=== PATIENT | female | born 1930 | race Caucasian/White ===

== ENCOUNTER 2016-10-08 17:50 | Emergency (ER) | payer MEDICARE, MEDICAID ==
--- NOTE | ~2016-10-08 | ER ---
PATIENT'S NAME: MARTHA [facility] AGE: 86 Y [address] ROOM: [place] [address] LOCATION: ED ADMIT DATE: 10/08/2016 ER/Outpatient Report DISCHARGE DATE: 10/08/2016 FAMILY PHYSICIAN: Damon Perez MD ATTENDING PHYSICIAN: Renato Borrego Time of Arrival: 1750 hours. Time Seen: 1830 hours. IDENTIFICATION: An 86-year-old female. CHIEF COMPLAINT: Uterine prolapse. HISTORY OF PRESENT ILLNESS: The patient is an 86-year-old female who was seen in March with uterine prolapse, did follow up in the clinic with Dr. Hernández and a pessary did not work, she said that did not stay in, and at that time she did not want surgery. Since then, it has increased in size and now for the last few days she has been increasingly incontinent of urine, and she has noted a little bit of bleeding. ALLERGIES: PENICILLIN. CURRENT MEDICATIONS: 1. Levothyroxine 75 mcg daily. 2. Timolol 0.5% eye solution 1 drop in each eye every morning. 3. Symbicort 160/4.5 two puffs twice daily. 4. Omeprazole 20 mg daily. 5. Plavix 75 mg daily. 6. Flonase 1 spray to each nostril twice daily. 7. Enteric-Coated aspirin 81 mg daily. 8. Tylenol 650 mg t.i.d. 9. Simvastatin 20 mg at h.s. 10. Zyrtec 10 mg daily. 11. Vitamin D 1000 units daily. 12. Artificial tears. 13. Tessalon Perles 100 mg b.i.d. P.r.n. medications to include: 1. Maalox. 2. Milk of magnesia. 3. Imodium. 4. Lotrimin. PATIENT'S NAME: MARTHA [facility] AGE: 86 Y [address] ROOM: [place] [address] LOCATION: [facility] ADMIT DATE: 10/08/2016 ER/Outpatient Report DISCHARGE DATE: 10/08/2016 FAMILY PHYSICIAN: Damon Perez MD ATTENDING PHYSICIAN: Renato Borrego 5. Flonase. MEDICAL PROBLEMS: Hypertension, venous insufficiency, gastroesophageal reflux, hypothyroidism, glaucoma, basal cell carcinoma of her face, left breast cancer, TIA, hypothyroidism, and COPD. PRIOR SURGERIES: Appendectomy, venous ligation x2, left breast lumpectomy, and excision of basal cell carcinoma. SOCIAL HISTORY: The patient lives at [facility] here in [place]. Tobacco use, denies. Alcohol use, denies. REVIEW OF SYSTEMS: All systems reviewed and negative other than what is noted in the HPI. PHYSICAL EXAMINATION: VITAL SIGNS: Weight 72.5 kg. Blood pressure 140/68, pulse 120, respirations 18, temperature 99.2, and saturations 95% on room air. Recheck of her heart rate did come down to 102. GENERAL: An 86-year-old female, in no acute distress. HEENT: Unremarkable. LUNGS: Clear to auscultation. HEART: Regular rate and rhythm. ABDOMEN: Soft, nondistended. PELVIC: Prolapsed uterus. There is an area that is in the anterior vaginal wall has a little bit of erosion. She has a couple of areas on the sidewalls with a small amount of bleeding. EMERGENCY ROOM COURSE: The patient was prepped, and a cath UA was obtained, which showed a full field of white cells and cloudy urine. I did reduce the prolapse manually, but it did come right back out. IMPRESSION: 1. Urinary tract infection. 2. Prolapsed uterus. PLAN: Levaquin 250 daily for 5 days. Repeat UA in 7 days. Follow up at [facility] regarding the prolapse. Follow up with Dr. Perez in 1 week regarding her UTI. The patient and her granddaughter understand and agree, and all questions have been answered. I also spoke with Dr. Mora, PATIENT'S NAME: JORJE THOMAS [facility] AGE: 86 Y [address] ROOM: [place] [address] LOCATION: [facility] ADMIT DATE: 10/08/2016 ER/Outpatient Report DISCHARGE DATE: 10/08/2016 FAMILY PHYSICIAN: Damon Perez MD ATTENDING PHYSICIAN: Renato Borrego [employer] plant protection guard, who was in agreement with this plan. MD RUTHIE KEYES/elisabeth /[id number] d: 10/09/16 0026 t: 10/09/16 0311, OUTPATIENT REPORT
[2016-10-08 19:05] LABS: BILIRUBIN URINE NEGATIVE (NEGATIVE); BLOOD URINE 250 /UL (NEGATIVE); COLOR URINE YELLOW (YELLOW); GLUCOSE URINE NEGATIVE (NEGATIVE); KETONE URINE NEGATIVE (NEGATIVE); LEUKOCYTES URINE 500 /UL (NEGATIVE); NITRITE URINE POSITIVE (NEGATIVE); PH URINE 6.5 (4.0-8.0); PROTEIN URINE 500 mg/dL (NEGATIVE); TURBIDITY URINE 4+ (CLEAR); UROBILINOGEN URINE NORMAL (NORMAL)
[2016-10-08 19:15] LABS: RBC URINE 20-50 #/HPF (NEGATIVE); WBC URINE FULL FIELD #/HPF (NEGATIVE)
[2016-10-08 19:16] LABS: BACTERIA URINE MANY (NEGATIVE); WBC CLUMPS URINE FEW (NEGATIVE)
== END 2016-10-08 19:30 | disposition disaster alternative care site (69) ==
LOC: GMED 17:50
PROVIDERS: Emergency Medicine
DX: N39.0 Urinary tract infection, site not specified (principal); N81.4 Uterovaginal prolapse, unspecified; I10 Essential (primary) hypertension; I87.2 Venous insufficiency (chronic) (peripheral); E03.9 Hypothyroidism, unspecified; K21.9 Gastro-esophageal reflux disease without esophagitis; J44.9 Chronic obstructive pulmonary disease, unspecified; Z85.828 Personal history of other malignant neoplasm of skin; Z85.3 Personal history of malignant neoplasm of breast; Z90.49 Acquired absence of other specified parts of digestive tract; Z98.890 Other specified postprocedural states; Z88.0 Allergy status to penicillin; Z79.890 Hormone replacement therapy; Z86.73 Personal history of transient ischemic attack (TIA), and cerebral infarction without residual deficits; Z79.02 Long term (current) use of antithrombotics/antiplatelets; Z79.82 Long term (current) use of aspirin; Z79.899 Other long term (current) drug therapy

== ENCOUNTER 2016-10-20 09:19 | Emergency (ER) | payer MEDICARE, MEDICAID ==
--- NOTE | ~2016-10-20 | ER ---
PATIENT'S NAME: JORJE THOMAS [facility] AGE: 86 Y [address] ROOM: [place] [address] LOCATION: [facility] ADMIT DATE: 10/20/2016 ER/Outpatient Report DISCHARGE DATE: 10/20/2016 FAMILY PHYSICIAN: Damon Perez MD ATTENDING PHYSICIAN: Deep Hurd Time of Arrival: Time of Evaluation: Admission date and time documented in the medical record. I saw the patient at 0930 hours. CHIEF COMPLAINT: Incontinence of urine, lower abdominal pain, and perineal pain. HISTORY OF PRESENT ILLNESS: This patient is an 86-year-old female, who is known to have uterine prolapse along with cystocele and rectocele. She saw Dr. Mora, kennel hand a few days ago. From my understanding, he did recommend operative correction. She has been thinking about this, and since she has been having more and more pain and more and more problems with incontinence. She stated here in the emergency department that she is going to request Surgery intervention. Her uterus is completely prolapsed. She is having more incontinence and pain. No real bleeding. No fever, chills, or sweats. No coughs, colds, or flus. No fall or trauma. No chest pain, shortness of breath. Some lower abdominal pain. No nausea, vomiting, or diarrhea. No joint or muscle swelling, redness, or pain. No skin eruptions or rash. HOME MEDICATIONS: See attached medication list. ALLERGIES: PENICILLIN. SOCIAL HISTORY: Nonsmoker and nondrinker. SIGNIFICANT PAST MEDICAL HISTORY: 1. Hypertension. 2. Recurrent urinary tract infections. 3. Gastroesophageal reflux. 4. Breast cancer. 5. Glaucoma. 6. Venous insufficiency. 7. Hypothyroidism. 8. Prolapsed uterus. 9. Cystocele. PAT[facility]'S [facility]: [facility] 86 Y [address] ROOM: [place] [address] LOCATION: [facility] ADMIT DATE: 10/20/2016 ER/Outpatient Report DISCHARGE DATE: 10/20/2016 FAMILY PHYSICIAN: Damon Perez MD ATTENDING PHYSICIAN: Deep Hurd 10. Rectocele. 11. Over atrophy. PAST SURGICAL HISTORY: Operations: 1. Left mastectomy. 2. Appendectomy. REVIEW OF SYSTEMS: All systems reviewed by me are negative with the exception of those discussed in the History of Present Illness. PHYSICAL EXAMINATION: VITAL SIGNS: Temperature 97.9, tympanic; pulse 100; respirations 20; blood pressure 146/67; and O2 saturation on room air is 96%. HEENT: Negative. LUNGS: Clear. HEART: Regular. ABDOMEN: Soft, nontender. Active bowel tones. Nondistended. GENITOURINARY: The patient does have a prolapsed uterus. Not bleeding. We did get a cath urine sample. EXTREMITIES: Intact. NEUROLOGIC: Neurovascularly intact. SKIN: Clear. LABORATORY DATA: Urine shows too numerous packed field whites, packed field reds, rare epithelial cells, few bacteria, and positive nitrites on dipstick. Culture pending. IMPRESSION: 1. Urine tract infection. 2. Uterine prolapse. PLAN: The patient was dismissed back to [facility], observation. Activity as tolerated. Continue present home medications and care. Tylenol No. 3, 1 to 2 orally every 4 to 6 hours as needed for pain, #20; Levaquin 500 mg 1 orally daily x7 days. Awaiting urine culture. The patient is to follow up with Dr. Mora next week. Discussion ensued with the patient and her family regarding my findings and recommendations, they understand. PATIENT'S NAME: JORJE THOMAS [facility] AGE: 86 Y [address] ROOM: [place] [address] LOCATION: [facility] ADMIT DATE: 10/20/2016 ER/Outpatient Report DISCHARGE DATE: 10/20/2016 FAMILY PHYSICIAN: Damon Perez MD ATTENDING PHYSICIAN: Deep Hurd MD SDS/modl /[id number] d: 10/20/16 1756 t: 10/21/16 0613, OUTPATIENT REPORT
[2016-10-20 10:47] LABS: BILIRUBIN URINE NEGATIVE (NEGATIVE); BLOOD URINE 250 /UL (NEGATIVE); COLOR URINE STRAW (YELLOW); GLUCOSE URINE NEGATIVE (NEGATIVE); KETONE URINE NEGATIVE (NEGATIVE); LEUKOCYTES URINE 500 /UL (NEGATIVE); NITRITE URINE POSITIVE (NEGATIVE); PROTEIN URINE 100 mg/dL (NEGATIVE); SPEC GRAVITY URINE 1.005 (1.003-1.035); TURBIDITY URINE 2+ (CLEAR); UROBILINOGEN URINE NORMAL (NORMAL)
[2016-10-20 10:58] LABS: BACTERIA URINE FEW (NEGATIVE); EPITHELIAL URINE RARE #/HPF (NEGATIVE); RBC URINE PACKED FIELD #/HPF (NEGATIVE); WBC URINE PACKED FIELD #/HPF (NEGATIVE)
== END 2016-10-20 11:29 | disposition disaster alternative care site (69) ==
LOC: GMED 09:19
PROVIDERS: Emergency Medicine
PROC: 0T9B70Z Drainage of Bladder with Drainage Device, Via Natural or Artificial Opening (ICD-10-PCS; principal; 2016-10-20)
DX: N39.0 Urinary tract infection, site not specified (principal); N81.4 Uterovaginal prolapse, unspecified; I10 Essential (primary) hypertension; K21.9 Gastro-esophageal reflux disease without esophagitis; E03.9 Hypothyroidism, unspecified; Z90.49 Acquired absence of other specified parts of digestive tract; Z90.12 Acquired absence of left breast and nipple; Z88.0 Allergy status to penicillin

== ENCOUNTER → 2016-10-20 | Outpatient (CLI) | payer MEDICARE, MEDICAID ==
[~2016-10-20] MED LIST: ARTIFICIAL TEAR15 ML OPHTH; ASPIRIN LO-DOSE81 MG PO; FLEET ENEMA133 ML R; FLONASE 50 MCG/16 GM NOSE; IMODIUM2 MG PO; LEVOTHROID(SYN75 MCG PO; LOTRIMIN30 GM TOP; MAALOX LIQ UNIT30 ML PO; MACROBID100 MG PO; MILK OF MA400 MG/5 M PO; NORCO 5-325 TA1 EACH PO; PLAVIX75 MG PO; PRILOSEC20 MG PO; SYMBICORT 16010.2 GM INH; TESSALON PERLE100 MG PO; TIMOPTIC 0.5%15 ML OPHTH; TYLENOL ARTHRI650 MG PO; TYLENOL WITH C1 EACH PO; VITAMIN D1000 UNIT PO; ZOCOR20 MG PO; ZYRTEC10 MG PO
== END | disposition disaster alternative care site (69) ==
LOC: GAMB 09:01
DX: R10.84 Generalized abdominal pain (principal); R10.2 Pelvic and perineal pain; Z88.0 Allergy status to penicillin
CPT/HCPCS: A0425; A0429

== ENCOUNTER 2016-10-30 16:00 | Inpatient (IN) | payer MEDICARE, MEDICAID ==
[~2016-10-30] VITALS: Ht 167.6 cm; Wt 73.6 kg
--- NOTE | ~2016-10-30 | OR ---
[facility] 86 Y [address] ROOM: [place] [address] [place] [facility] [place] DATE: 11/06/2016 OR/Procedure Report DISCHARGE DATE: FAMILY PHYSICIAN: Damon Perez MD ATTENDING PHYSICIAN: Laron Mora SURGEON: Rigoberto Poole MD MULCHER OPERATOR: DATE OF PROCEDURE: 11/06/2016 PREOPERATIVE DIAGNOSES: 1. Uterovaginal prolapse with total procidentia. 2. Cystocele. 3. Rectocele. 4. Enterocele. 5. Stress urinary incontinence. POSTOPERATIVE DIAGNOSES: 1. Uterovaginal prolapse with total procidentia. 2. Cystocele. 3. Rectocele. 4. Enterocele. 5. Stress urinary incontinence. 6. 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 PROCEDURE: Total vaginal hysterectomy with enterocele repair, resection of broad ligament leiomyomas, anterior colporrhaphy, posterior colporrhaphy, vaginal vault suspension, mid urethral sling, and biopsy of vaginal wall. CO-SURGEON: Huseyin Rosales MD. ANESTHESIA: General with intubation. ESTIMATED BLOOD LOSS: Approximately 1500 mL. DESCRIPTION OF PROCEDURE: The patient was taken to the operating room, under adequate general anesthesia, positioned, prepped, and draped in the usual fashion. She had the total procidentia noted. There was a small dimple opening at what should have been a cervical os, however, the cervix was unable to be identified from the flush vaginal mucosa. We grasped the edges of the small opening and made a circumferential incision using a sharp knife. The vaginal mucosa was pushed back anteriorly and posteriorly. The cervix was noted to be quite elongated. We used the LigaSure device to clamp, seal, and divide pedicles on each side of the uterus at the 3 o'clock and 9 o'clock position and continued our dissection anteriorly and posteriorly using sharp PAT[facility]'S [facility]: [facility] AGE: 86 Y [address] ROOM: [place] [address] [place] [facility] [place]: 11/06/2016 OR/Procedure Report DISCHARGE DATE: FAMILY PHYSICIAN: Damon Perez MD ATTENDING PHYSICIAN: Laron Mora and blunt dissection. The cervix was approximately 7-8 cm long. We finally were able to palpate the uterine fundus after continuing our dissection with the LigaSure device instrument, however, the peritoneum was never entered; and with continued dissection and using the LigaSure device, the uterus was freed up and handed off the field. We then were able to identify the peritoneum and opened this, placed the blade of the long weighted speculum into the cul-de- sac, and used the retractor anteriorly, what we then noted was that there were a couple of uterine leiomyomas involving the broad ligament on the patient's right side. By this time, she had had a fairly unusual amount of blood loss. We were able to resect those fibroids and tie off the utero-ovarian ligament on that side. Again, we were concerned about blood loss prior to starting the hysterectomy. She had a 5-cm ulceration involving the vaginal mucosa, that we had resected, and this had continued to ooze during the hysterectomy. The tubes and ovaries were not readily accessible and the decision was made because of the blood loss at that point and additional procedures that were necessary, that we would not invest more time looking for the tubes and ovaries and attempting to remove them. We thereupon and placed a pursestring suture of 0 Vicryl to close off the enterocele as high as possible. We placed additional sutures of 0 Vicryl in a pursestring fashion to close off the enterocele. We then dissected the vaginal mucosa off the anterior wall in the midline from the apex of which should have been the top of the vagina out to the urethral meatus. Mucosa was freed up from the underlying tissues, and we dissected into the periurethral area on each side. Dr. Rosales then was able to perform the mid urethral sling procedure. Please see his dictated note. We then performed the cystocele repair using interrupted 2-0 Vicryl sutures in a [id number] fashion. We then trimmed off excess vaginal wall mucosa and approximated the edges in the midline with running locked 0 Vicryl up to the vaginal apex. The cuff was then closed with the 0 Vicryl as well. We then turned our attention posteriorly and resected a triangular-shaped piece of tissue at the posterior fourchette of the vagina. We dissected through the mucosa in the midline from the introitus up to where the ulcerated lesion had been removed. We then freed up the edges of the mucosa from the underlying tissues and dissected back to the region of the sacrospinous ligament on each side. We passed a ligature of 0 Goodman-Rock through the sacrospinous ligament on each side and this was attached to the lateral apex of the vagina effectively performing a sacrospinous ligament fixation of the vaginal apex on each side. We then removed the excess vaginal mucosa and performed the rectocele repair using a running nonlocked 0 Vicryl. A 2nd layer of running nonlocked 0 Vicryl was used to imbricate the first layer. We then approximated the mucosa in a running locked fashion from the apex of vagina out to the introitus. This was continued in a running nonlocked fashion to approximate the perineal body and then in a subcuticular fashion approximating the skin edges over the perineal body. Upon completion, all counts were correct. She did have a growth upon the right lateral aspect of the vagina wall and this appeared to be about a 1.5 cm to 2 cm condylomatous lesion, this was removed using cautery and the PATIENT'S NAME: JORJE THOMAS [facility] AGE: 86 Y [address] ROOM: [place] [address] [place] [facility] [place]: 11/06/2016 OR/Procedure Report DISCHARGE DATE: FAMILY PHYSICIAN: Damon Perez MD ATTENDING PHYSICIAN: Laron Mora mucosa approximated with an interrupted suture of 2-0 Vicryl. Hemostasis then was good. We placed a pack in the vagina and a Clemens in the bladder, and the patient was taken to the recovery area in good condition. MD ZACH SHAY/elisabeth /[id number] d: 11/06/162138 t: 11/28/16 1626, OPERATIVE SUMMARY
--- NOTE | ~2016-10-30 | OR ---
PATIENT'S NAME: JORJE THOMAS [facility] AGE: 86 Y [address] ROOM: [place] [address] LOCATION: [facility] [place] ADMIT DATE: 11/06/2016 OR/Procedure Report DISCHARGE DATE: FAMILY PHYSICIAN: Damon Perez MD ATTENDING PHYSICIAN: Laron Mora SURGEON: Huseyin Rosales MD PACKERHEAD MACHINE OPERATOR: DATE OF PROCEDURE: 11/06/2016 PREOPERATIVE DIAGNOSES: 1. Stress urinary incontinence. 2. Uterine prolapse. 3. Cystocele. POSTOPERATIVE DIAGNOSES: 1. Stress urinary incontinence. 2. Uterine prolapse. 3. Cystocele. PROCEDURE PERFORMED: Mid-urethral suspension. ANESTHESIA: General. COMPLICATIONS: None. INDICATION FOR PROCEDURE: The patient is an 86-year-old female with severe cystocele and uterine prolapse along with stress urinary incontinence. The patient is scheduled to undergo simultaneous repair. DESCRIPTION OF PROCEDURE: After Dr. Poole completed his part of the procedure, he opened up the anterior vaginal wall and developed a space into the endopelvic fascia. I made a skin incision over the pubic bone bilaterally. Next, the TVT needle was passed through the abdominal incision, through the endopelvic fascia, and out the anterior vaginal wall bilaterally. Cystoscopy was performed, and this revealed that the needles had not penetrated the bladder wall. The Clemens catheter was replaced, and a tape was attached to the ends of each needle and pulled through. Heavy curved scissors were used as a spacing device. The sheath was cut and pulled through, locking the tape in position. The excess was excised at the abdominal wall. The patient tolerated this part of the procedure well. At this point, Dr. Poole continued on with his part of the operation. [facility] 86 Y [address] ROOM: [place] [address] LOCATION: [facility] [place] ADMIT DATE: 11/06/2016 OR/Procedure Report DISCHARGE DATE: FAMILY PHYSICIAN: Damon Perez MD ATTENDING PHYSICIAN: Laron Mora MD KELLY/elisabeth /[id number] CC: MD Rigoberto Griffith MD d: 11/06/16 1301 t: 11/07/16 0903, OPERATIVE SUMMARY
--- NOTE | ~2016-10-30 | DS ---
PATIENT'S NAME: JORJE THOMAS [facility] AGE: 86 Y [address] ROOM: [address] [address] [place] [facility] [place] DATE: 11/06/2016 Discharge Summary DISCHARGE DATE: 11/09/2016 FAMILY PHYSICIAN: Damon Perez MD ATTENDING PHYSICIAN: Rigoberto Poole CHIEF COMPLAINT AND HISTORY OF PRESENT ILLNESS: This 86-year-old female had problems with total procidentia. The uterus was totally prolapsed out through the vagina and she was unable to retain it. She was admitted for surgical therapy and on the day of admission, she was taken to the operating room where she had a vaginal hysterectomy followed by enterocele repair, anterior and posterior colporrhaphy, vaginal vault suspension procedure, resection of broad ligament leiomyomas, biopsy of vaginal wall by myself, and then a mid urethral sling procedure by Dr. Rosales. Please see the dictated operative reports. On her first postop day, she remained afebrile. Vital signs stable. She was able to ambulate with assistance. She was noted to be anemic, but vital signs were stable and she appeared to tolerate this well. She had the vaginal packing removed along with her catheter, but was unable to void. She was kept overnight and on her 2nd postoperative day, hemoglobin was 8.2. She increased her activity, was able to tolerate oral intake well, but still was somewhat unsteady and unable to void on her own. She was ultimately transfused 2 units of packed red blood cells, this increased her ability to ambulate and on November 09, was deemed well enough for discharge. At that time, she remained afebrile. Vital signs stable. Minimal vaginal drainage. She was still unable to void, but was instructed on the use of a leg bag and went home with her catheter. Instructions were given and understood with regard to activity. She will follow up for postop care with me in 2 weeks in the office and will see Dr. Rosales in 7-10 days for removal of the catheter and followup on her bladder function. MD ZACH SHAY/elisabeth /[id number] d: t: 11/29/16 0236, DISCHARGE SUMMARY
[2016-10-31] MEDS ORDERED: LEVOTHROID(SYN75 MCG PO (11:19)
[2016-10-31] MEDS ORDERED: SYMBICORT 16010.2 GM INH (11:20)
[2016-10-31] MEDS ORDERED: TIMOPTIC 0.5%15 ML OPHTH (11:20)
[2016-10-31] MEDS ORDERED: PRILOSEC20 MG PO (11:20)
[2016-10-31] MEDS ORDERED: PLAVIX75 MG PO (11:21)
[2016-10-31] MEDS ORDERED: ASPIRIN LO-DOSE81 MG PO (11:21)
[2016-10-31] MEDS ORDERED: FLONASE 50 MCG/16 GM NOSE ×2 (11:21→11:28)
[2016-10-31] MEDS ORDERED: TYLENOL ARTHRI650 MG PO ×2 (11:22→11:25)
[2016-10-31] MEDS ORDERED: VITAMIN D1000 UNIT PO (11:22)
[2016-10-31] MEDS ORDERED: ZYRTEC10 MG PO (11:22)
[2016-10-31] MEDS ORDERED: ZOCOR20 MG PO (11:22)
[2016-10-31] MEDS ORDERED: ARTIFICIAL TEAR15 ML OPHTH (11:23)
[2016-10-31] MEDS ORDERED: MAALOX LIQ UNIT30 ML PO (11:24)
[2016-10-31] MEDS ORDERED: TESSALON PERLE100 MG PO (11:24)
[2016-10-31] MEDS ORDERED: MILK OF MA400 MG/5 M PO (11:25)
[2016-10-31] MEDS ORDERED: IMODIUM2 MG PO (11:26)
[2016-10-31] MEDS ORDERED: TYLENOL WITH C1 EACH PO (11:27)
[2016-10-31] MEDS ORDERED: LOTRIMIN30 GM TOP (11:27)
[2016-10-31] MEDS ORDERED: FLEET ENEMA133 ML R (11:29)
[2016-11-06] MEDS ORDERED: MACROBID100 MG PO (07:56)
[2016-11-06 13:35] LABS: HEMATOCRIT 29.8 % (30.0-46.0); HEMOGLOBIN 9.6 g/dL (10.0-15.0)
--- NOTE | 2016-11-06 17:18 | NUR ---
Patient arrived from surgery at 1515 to room 3202. She has 2 incisions in the lower abdomen, steri-striped. Vag packing and barajas in place, to be removed tomorrow at 0700. She has received one percocet, Dr. Poole wants to have another given, will offer before shift change. VSS, on 0.5L O2, she desats when she sleeps. Activity is up to chair and diet as tolerated.
[2016-11-07 04:19] LABS: BASOPHIL % 0.1 %; EOSINOPHIL % 0.2 %; HEMATOCRIT 25.9 % (30.0-46.0); HEMOGLOBIN 8.2 g/dL (10.0-15.0); IMMATURE GRANULOCYTE % 0.4 %; LYMPHOCYTE # 1.5 K/uL (0.8-4.0); MCH 30.7 pg (27.0-34.0); MCHC 31.7 gm/dL (32.0-36.5); MONOCYTE # 1.3 K/uL (0.0-1.0); MONOCYTE % 13.3 %; MPV 9.3 fl (9.4-12.4); NEUTROPHIL # (ANC) 6.9 K/uL (1.8-7.8); NRBC % 0 /100WBC (0-0.00); PLATELET COUNT 217 K/uL (150-450); RDW-CV 13.2 % (11.9-14.6); WBC 9.7 K/uL (4.0-11.0)
[2016-11-07 04:23] LABS: RBC 2.67 M/uL (3.00-5.00)
--- NOTE | 2016-11-07 04:41 | NUR ---
Significant Event: AAOX3. REG DIET. PIV TO RIGHT FA. CAN BE UP IN CHAIR. CURRENTLY HAS RODRIGUEZ AND VAGINAL PACKING, BOTH TO BE REMOVED AT 0700. 2 PERCOCET ADMINISTERED AT 2300 FOR ABD PAIN R/T PROCEDURE. STAB SITES TO LOWER ABD INTACT WITH NO DRAINAGE. COOPERATIVE WITH CARES. Follow up:
--- NOTE | 2016-11-07 11:21 | NUR ---
SPOKE TO PATIENT AND HER GRANDAUGHMATIAS ARRLEY AT THE BEDSIDE. INTRODUCED CM AND OUR ROLE. PATIENT LIVES AT [facility]. SHE HAS LIVED THERE FOR 3 YEARS. PATIENT IS PLANNING ON RETURNING THERE ONCE SHE IS READY FOR DISCHARGE. HER GRANDAUGHTER ARRLEY WILL TRANSPORT HER ONCE SHE IS READY FOR DISCHARGE. CM WILL CONT TO FOLLOW NEEDED.
--- NOTE | 2016-11-07 11:35 | NUR ---
NOTIFIED BR[facility] MUNOZ AND GARRETT EDWARD THAT JORJE MAY BE READY FOR DISCHARGE TOMORROW. SHE REPORTS THAT THEY ARE PLANNING ON HER COMING ONCE SHE IS MEDICALLY CLEARD. WILL CONT FOLLOW NEEDED.
--- NOTE | 2016-11-07 17:51 | NUR ---
Patient is alert and oriented, VSS, on room air. 2 lap sites to lower abdomen are steri-stripped. SBA with a walker and gaitbelt, does not use one at home. Vag packing and barajas removed this am but was unable to void so a new one was placed at 1700, needs to be removed tomorrow at 0700. If still unable to void before she discharges, place another barajas and sent home with it. Regular diet, ambulated in the halls once today. Told her she needs to go right away in the am and to walk multiple times.
--- NOTE | 2016-11-08 05:19 | NUR ---
Significant Event: Patient alert and oriented X4. Forgetful at times. Reoients easily. Ortiz in place. 2 stab sites lower abd. 1 percocet last at 0215. Plan to go home today. Vitals stable and on room air. Bed alarm on. PNeumatics on. Refused to walk in halls this shift. IVs x2 saline locked to r) forearm. H&H at 0700. REstarting asprin and plavis this AM. Follow up: Monitor bleeding
[2016-11-08 06:58] LABS: HEMATOCRIT 25.6 % (30.0-46.0); HEMOGLOBIN 8.2 g/dL (10.0-15.0)
--- NOTE | 2016-11-08 16:00 | NUR ---
RECEIVED CALL FROM PATIENT'S NURSE THA THAT SHE HAD TO COTNACT DR. SMITH TO INFORM HIM THAT JORJE CAN NOT VOID, HE GAVE HER ORDERS FOR THIS AND ASKED HER TO ARRANGE FOR PATIENT TO DISCHARGE BACK TO [facility] THIS PM. [facility] AND SPOKE TO [facility] SHE INFORMS ME THAT THEY WILL NOT BE ABLE TO ACCPET PATIENT BACK THIS LATE IN THE DAY THE NURSE THAT NEEDS TO BE THERE WHEN A PATIENT COMES BACK HAS LEFT FOR THE DAY. SHE INFORMS ME THAT THEY WILL BE ABLE TO ACCEPT PATIENT TOMORROW. WILL CONT TO FOLLOW NEEDED.
--- NOTE | 2016-11-08 17:13 | NUR ---
Significant event: Patient is alert and oriented, is forgetful at times. VSS. on room air. IV's x2 to right wrist and right forearm. Both are to be saline locked. 1 unit of blood is currently running in the right forearm. Catheter was removed this morning and pt has not voided since. BLadder scan showed 500mls. Dr Rosales ordered to replace catheter and patient will have to go back to [place] with it. SHe will need teaching on it to be able to take care of it herself. Is on regular diet, tolerating well. Drinking well. Did have percocet x1 at 0900. Clemens will be placed. Incision are intact, no drainage noted. Small amount of bloody vaginal discharge. Did ambulate with one assist/walker/gait belt. Cooperative with cares.
--- NOTE | 2016-11-09 02:18 | NUR ---
Significant Event: Patient alert and oriented X4. Up with one assist, walker and gait belt. I&O. Barjaas in place, plan to go to assisted living today with barajas. Received 2 units PRBCs. 2 stabs sites to lower abdomen, scant old drainage noted. Using peripads for some vaginal drainage yet. 1 percocet given at bedtime for mild discomfort. Relief noted. Vitals stable and on room air. Cooperative with cares. Follow up: Monitor barajas
--- NOTE | 2016-11-09 10:24 | NUR ---
NOTIFIED [facility] MUNO[facility] AND SPOKE TO THE CHARGE NURSE AND UPDATED HER THAT JORJE WILL BE COMING BACK WITH RODRIGUEZ CATH. SHE REPORTS THAT THEY CAN EMPTY THE RODRIGUEZ BUT SHE NEED TO HAVE KNOWLEGE ON HOW TO CARE FOR IT. PER PATIENT'S NURSE WHEN SHE WAS DOING THE TEACHING ON CATH CARE THE PATIENT TOLD HER " I WILL NEVER REMEMBER THIS." I INFORMED THE CHARGE NURSE OF THIS AND SHE TELLS ME THAT THEY CAN EMPTY IT AND WILL HELP HER. I PRESENTED THE OPTION OF HHC BUT SHE DECLINED THE NEED FOR IT.
[2016-11-09] MEDS ORDERED: NORCO 5-325 TA1 EACH PO (12:19)
--- NOTE | 2016-11-09 12:40 | NUR ---
DISCHARGE: D: ORDERS RECEIVED FOR THE PATIENT TO BE DISCHARGED TO [facility] TODAY. I: DISMISSAL INSTRUCTIONS WERE PREPARED AND REVIEWED WITH THE PATIENT AND HER GRAND-DAUGHTER VIRTUALLY. THE FOLLOWING INFORMATION WAS DISCUSSED INCLUDING KRAMES TEACHING SHEETS PROVIDED: DISCHARGE INSTRUCTIONS FOR VAGINAL HYSTERECTOMY, CARING FOR YOURSELF AFTER.., PELVIC ORGAN PROLAPSE-SURGERY FOR INCONTINENCE, HAVING A MIDURETHRAL SLING SURGERY, NORCO, PREVENTING DVT, DISCHARGE INSTRUCTIONS FOR YOUR INDWELLING URINARY CATHETER, EMPTYING AND CLEANING YOUR URINARY CATHETER BAG, AND DISCHARGE INSTRUCTIONS FOR CARING FOR YOUR LEG BAG. REVIEWED NEW MEDICATION AND SIDE EFFECTS. R: THE PATIENT AND HER GRAND-DAUGHTER BOTH VERBALIZED UNDERSTANDING OF THE DISMISSAL EDUCATION AT THE TIME OF TEACHING WITH NO FUTHER QUESTIONS. P: THE ABOVE INFORMATION WAS SHARED WITH THE PRIMARY NURSE AND CHARGE NURSE THAT THE PATIENT DISMISSAL EDUCATION IS COMPLETED. THE PATIENT IS READY FOR DISHCARGE TO THE FRONT DOOR VIA WHEEL CHAIR BY NURSING STAFF.
--- NOTE | 2016-11-09 13:10 | NUR ---
RECEIVED CALL FROM VERONIKA AT [facility] REQUESTING THAT DISCHARGE ORDERS BE FAXED TO HER. I FAXED THE DISCHARGE ORDERS TO HER. [phone]
== END 2016-11-09 13:45 | disposition disaster alternative care site (69) | DRG 742 ==
LOC: GMSU 11-06 07:18
PROVIDERS: Obstetrics & Gynecology; ADMIT Obstetrics & Gynecology
PROC: 0UBG0ZX Excision of Vagina, Open Approach, Diagnostic (ICD-10-PCS; principal; 2016-11-06)
PROC: 0USG0ZZ Reposition Vagina, Open Approach (ICD-10-PCS; principal; 2016-11-06)
PROC: 0TSD0ZZ Reposition Urethra, Open Approach (ICD-10-PCS; principal; 2016-11-06)
PROC: 0UTC7ZZ Resection of Cervix, Via Natural or Artificial Opening (ICD-10-PCS; principal; 2016-11-06)
PROC: 0UT97ZZ Resection of Uterus, Via Natural or Artificial Opening (ICD-10-PCS; principal; 2016-11-06)
PROC: 0UQF7ZZ Repair Cul-de-sac, Via Natural or Artificial Opening (ICD-10-PCS; principal; 2016-11-06)
PROC: 0JQC0ZZ Repair Pelvic Region Subcutaneous Tissue and Fascia, Open Approach (ICD-10-PCS; principal; 2016-11-06)
PROC: 30233N1 Transfusion of Nonautologous Red Blood Cells into Peripheral Vein, Percutaneous Approach (ICD-10-PCS; 2016-11-08)
DX: N81.3 Complete uterovaginal prolapse (principal); D62 Acute posthemorrhagic anemia; I10 Essential (primary) hypertension; N39.3 Stress incontinence (female) (male); D25.9 Leiomyoma of uterus, unspecified; E03.9 Hypothyroidism, unspecified; N76.5 Ulceration of vagina; E78.2 Mixed hyperlipidemia; J45.909 Unspecified asthma, uncomplicated; H40.9 Unspecified glaucoma; K21.9 Gastro-esophageal reflux disease without esophagitis; E55.9 Vitamin D deficiency, unspecified; Z85.3 Personal history of malignant neoplasm of breast; Z85.828 Personal history of other malignant neoplasm of skin; Z86.73 Personal history of transient ischemic attack (TIA), and cerebral infarction without residual deficits; Z92.3 Personal history of irradiation; Z79.82 Long term (current) use of aspirin; Z88.0 Allergy status to penicillin; Z79.02 Long term (current) use of antithrombotics/antiplatelets
CPT/HCPCS: C2631; J0690; J0694; J1580; J2001; J2405; J7030; J7050; P9016; P9045

== ENCOUNTER → 2016-10-31 | Outpatient (CLI) | payer MEDICARE, MEDICAID ==
[2016-10-31 15:25] LABS: INR - (THERAPEUTIC) 1.04 (0.92-1.07); PROTIME 10.9 SECONDS (9.8-11.4)
== END | disposition disaster alternative care site (69) ==
LOC: LGSMG 15:14
PROVIDERS: Internal Medicine Nephrology
DX: Z00.00 Encounter for general adult medical examination without abnormal findings (principal); Z01.818 Encounter for other preprocedural examination

== ENCOUNTER → 2016-11-02 | Outpatient (CLI) | payer MEDICARE, MEDICAID | END | disposition disaster alternative care site (69) | LOC: GBCOE 10-26 11:30 | DX: Z12.31 Encounter for screening mammogram for malignant neoplasm of breast (principal); Z85.3 Personal history of malignant neoplasm of breast | CPT/HCPCS: G0202 ==